=== PATIENT | male | born 1965 | race Caucasian/White ===

== ENCOUNTER 2017-04-26 07:03 | Day surgery (SDC) | payer OTHER ==
--- NOTE | 2017-04-11 13:04 | HP ---
HISTORY OF PHYSICAL: DATE OF SURGERY/ADMISSION: 04/26/2017 - [facility] ATTENDING SURGEON: Dr. Kerr. (DICTATED BY JUJU JOHNSON) PROCEDURE: Left wrist de Quervain's release. DATE OF OFFICE VISIT: 04/11/2017. CHIEF COMPLAINT: Left wrist pain. HISTORY OF PRESENT ILLNESS: The patient is a pleasant 52-year-old male who has recent diagnosis of de Quervain's of the left wrist. He has tried conservative measures such as physical therapy and since then, however, has not had decrease in his pain and has elected to undergo a left wrist de Quervain's release on by Dr. Kerr. PAST MEDICAL HISTORY: 1. GERD. 2. Depression. 3. Anxiety. PAST SURGICAL HISTORY: Bilateral knee surgery by Dr. Dias. MEDICATIONS: 1. Klonopin 0.5 mg p.r.n. b.i.d. 2. Celexa 20 mg p.o. daily. 3. Omeprazole 20 mg daily. ALLERGIES: No known allergies. FAMILY MEDICAL HISTORY: Mother from lung cancer. Father alive and well. SOCIAL HISTORY: No tobacco use. Positive alcohol use, approximately one drink per week. Currently living with his . REVIEW OF SYSTEMS: General: Negative for fevers, chills, or night sweats. No difficulty with anesthesia. HEENT: Negative for headache, lightheadedness, or syncopal episodes. Integument: Negative for open wounds, difficulty with healing of lesions. Cardiothoracic: Negative for hypertension, chest pain, palpitation, or edema. Pulmonary: Negative for shortness of breath, chronic cough, or COPD. GI: Negative for nausea, vomiting, constipation, or diarrhea. Positive for GERD. : Negative for nocturia, urinary frequency, or urgency. No history of UTIs or kidney problems. Musculoskeletal: Negative for chronic pain. Neuro: Positive for paresthesias and numbness in the left thumb extending into wrist/forearm. No history of fever, chills, or epilepsy. Positive for anxiety, positive for depression. Endocrine: Negative for diabetes, negative for thyroid disease. Hematologic: Negative for easy bruising. No history of DVT. Infectious Disease: Negative for MRSA, hepatitis C or HIV. PHYSICAL EXAMINATION VITAL SIGNS: Height 67 inches, weight 165 pounds. Pulse 80, blood pressure 113 /78, respirations 16, temperature 97.3, and BMI 24.3. HEENT: Normocephalic, atraumatic. EOMI. NECK: Supple. Trachea midline. PULMONARY: Lungs clear to auscultation bilaterally. No crackles, rhonchi, or wheezes. CARDIOVASCULAR: Regular rate and rhythm. No murmurs, gallops, or rubs. ABDOMEN: Soft, nontender, and nondistended. Negative for CVA tenderness bilaterally. NEUROLOGIC: Alert and oriented x3. Cranial nerves grossly intact. Sensation intact to light touch in bilateral upper extremities. MUSCULOSKELETAL: Negative Elisha's. Pulse is 2+ bilaterally. Full range of motion of the wrist, left side, and left thumb with decreased strength of approximately 3/5 with extension, abduction, and adduction. Cap refill is less than 2 in all left digits. Full range of motion and strength in digits 3 through 5 without any pain. IMPRESSION: Left wrist de Quervain's. PLAN: The patient is scheduled to undergo de Quervain's release on 04/26/[address] Kerr. He will be followed 10 days postoperatively for suture removal and and wound check. Prescription for Tylenol No. 3 and Colace was sent to the patient's pharmacy for postoperative management. JUJU JOHNSON [id number]/[facility] #: [id number] MTDD
[~2017-04-26 07:03] MED LIST: Buffered Lidocaine 0.9% SYRIN* 5 ML/SYR SYRINGE INTRADERM ONE
[2017-04-26] MEDS ORDERED: Propofol* 10 MG/ML 20 ML BTL IV PUSH ONE (07:56)
[2017-04-26] MEDS ORDERED: Lidocaine 2% PF * 5 ML VIAL ONE (07:56)
[2017-04-26] MEDS ORDERED: fentaNYL* 50 MCG/ML 2 ML VIAL (100 MCG VIAL) ONE (07:56)
[2017-04-26] MEDS ORDERED: Midazolam* 1 MG/ML 2 ML VIAL (2 MG) ONE (08:09)
[2017-04-26] MEDS ORDERED: Lidocaine 1% INJ* 10 MG/ML 30 ML SDV ONE (08:14)
[2017-04-26 09:41] VITALS: BP 117/87
--- NOTE | 2017-04-27 06:23 | OP ---
DATE OF OPERATION: 04/26/17 [facility] DATE OF : 67 SURGEON: Kitty Kerr MD SUPERVISOR SILVERING DEPARTMENT: JUJU Church ANESTHESIA: Local MAC. PRE-OP DIAGNOSIS: Left de Quervain's tenosynovitis. POST-OP DIAGNOSIS: Left de Quervain's tenosynovitis. OPERATIVE PROCEDURE: Left de Quervain's release. ESTIMATED BLOOD LOSS: Zero. TOURNIQUET TIME: About 8 minutes. INDICATIONS FOR PROCEDURE: Neftaly is a 52-year-old male who has pain in the radial aspect of his left wrist. He has failed conservative treatment. He has Quervain's tenosynovitis. He presents for first dorsal compartment release on the left. DESCRIPTION OF PROCEDURE: The patient was brought to the operating room and given a sedation anesthetic and a local infiltration of 10 cc of 1% plain lidocaine in the radial aspect of the left wrist. The skin of his left hand and forearm was prepped and draped in the usual sterile fashion. The hand and forearm were exsanguinated and the tourniquet elevated to 250 mmHg. A longitudinal incision was made centered at the tip of the radial styloid. We dissected bluntly through the subcutaneous tissue. Branches of the radial sensory nerve were located and retracted by the surgical services coordinator, Patsy Parmar. The first dorsal compartment was incised, completely releasing the APL and EPB tendons, which were in separate compartments. There was some surrounding tenosynovitis and this was debrided. The wound was irrigated and the skin edges were reapproximated with 4-0 nylon suture. The wound was dressed with Xeroform, 4x4, Webril, and an Otis wrap. The patient tolerated the procedure well and was brought to the recovery room in good condition. [id number]/[facility] #: [id number] MTDD
== END 2017-04-26 09:37 | disposition home or self-care (01) ==
LOC: OREAST 07:03
PROVIDERS: ATTEND Orthopaedic Surgery
DX: M65.4 Radial styloid tenosynovitis [de Quervain] (principal)
CPT/HCPCS: J2001; J2250; J2704; J3010

== ENCOUNTER 2018-06-20 08:01 | Day surgery (SDC) | payer OTHER ==
--- NOTE | 2018-06-16 21:42 | HP ---
Amended report to enter cosigning physician. PREOPERATIVE HISTORY AND PHYSICAL: DATE OF ADMISSION: 06/20/18 DATE OF OFFICE VISIT/ENCOUNTER: 06/04/18 ATTENDING SURGEON: Kitty Kerr MD* (dictated by JUJU Church). PROCEDURE: Right elbow lateral release. CHIEF COMPLAINT: Right elbow pain. HISTORY OF PRESENT ILLNESS: This is a 53-year-old male who has had pain in his right elbow since June 2017. He denies any trauma. He was diagnosed with lateral epicondylitis. 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 The pain is chronic and it aches. He even has pain at rest. He has failed conservative treatment including nonsteroidal anti- inflammatory drugs, 2 cortisone injections, bracing and physical therapy. He is interested in a more permanent solution for this problem and has consented to proceed with surgical intervention. PAST MEDICAL HISTORY: 1. GERD. 2. Anxiety. PAST SURGICAL HISTORY: 1. Lipoma excision from groin in 2001. 2. Bilateral knee surgeries to address problems with medial collateral ligament. 3. Risk surgery in 2016. CURRENT MEDICATIONS: 1. Celexa 20 mg daily. 2. Klonopin 0.5 mg twice a day. 3. [place]-3. 4. Omeprazole 20 mg. 5. Daily vitamins. ALLERGIES: No known drug allergies. FAMILY MEDICAL HISTORY: Cancer and heart disease. SOCIAL HISTORY: The patient is employed as a beer distributor. He denies tobacco use and recreational drug use. He does drink alcohol on occasion. REVIEW OF SYSTEMS: General: Negative for fevers, chills, night sweats, unexplained weight loss/gain. No known anesthesia problems in the past. HEENT : Negative for headache, lightheadedness, syncopal episodes, or visual changes. Integumentary: Negative for abrasions, lesions, or open wounds. Cardiothoracic : Negative for hypertension, chest pain, palpitations, or edema. Respiratory: Negative for shortness of breath with exertion, chronic cough, or wheezing. GI : Negative for nausea, vomiting, diarrhea, constipation, or GERD. : Negative for nocturia, urinary frequency/urgency, history of UTIs, or kidney problems. Musculoskeletal: Positive for current complaint. Negative for chronic or intermittent back pain or history of fractures. Neurological: Negative for paresthesias, numbness, history of seizure, stroke, poor balance. Positive for anxiety. Endocrine: Negative for diabetes and thyroid issues. Hematologic: Negative for easy bruising, anemia, bleeding disorders, history of DVT. Infectious Disease: Negative for history of MRSA, hepatitis C, or HIV. PHYSICAL EXAMINATION GENERAL: Well-developed, well-nourished 53-year-old male in no acute distress. VITAL SIGNS: Height 5 feet 7 inches, weight 162, pulse rate 87, blood pressure 122/80. HEENT: Normocephalic, atraumatic. Pupils are equal, round, and reactive to light and accommodation. Extraocular movements are intact. Throat is clear. NECK: Supple. No palpable lymph nodes. PULMONARY: Lungs are clear to auscultation bilaterally. No wheezes, rales, or rhonchi. CARDIOVASCULAR: Regular rate and rhythm. S1, S2. No murmurs, rubs, or gallops. No edema. ABDOMEN: Positive bowel sounds. Soft, nontender. MUSCULOSKELETAL: On exam of his right elbow, there is no visible swelling. The patient has exquisite tenderness to palpation in the area of the lateral epicondyle. He has increased pain with the extremes of both elbow flexion and extension and increased pain with wrist extension and forearm supination. He also has pain with elbow extension and squeezing his hand. Neurovascular function is intact. No laxity noted at the elbow. NEUROLOGIC: Alert and oriented x3. Cranial nerves II through XII are intact. Sensation is intact to light touch. IMPRESSION: Right elbow lateral epicondylitis. PLAN: The patient is scheduled to undergo a right elbow lateral release with Dr. Kerr on 06/20/18. He will return to the office 10 days postop for followup and suture removal. A prescription for [place] was e-scribed to the patient's pharmacy for postoperative pain management. JUJU CHURCH [id number]/[facility] #: [id number] MTDD
[~2018-06-20 08:01] MED LIST changes: +Dexamethasone TAB* 4 MG ONE; +Dexamethasone TAB* 4 MG PO ONE; +DiMENhydriNATE IV* 50 MG/ML VIAL IV PUSH PRN; +Famotidine IV* 10 MG/ML 2 ML (20 mg) IV ONE; +Famotidine IV* 10 MG/ML 2 ML (20 mg) ONE; +Morphine INJ* 2 MG/ML 1 ML SYRINGE (TWO MG - NEW SYRINGE VERSION) IV PRN; +Naloxone* 0.4 MG/ML 1 ML VIAL IV PRN; +Ondansetron ODT TAB* 4 MG ONE; +Ondansetron TAB* 4 MG PO ONE; +PROCHLORPERAZINE INJ 5 MG/ML 2 ML VIAL IV PRN; +fentaNYL* 50 MCG/ML 2 ML VIAL (100 MCG VIAL) IV PRN; +oxyCODONE/Acetamin 5/325 MG* TAB PO PRN
[2018-06-20] MEDS ORDERED: fentaNYL* 50 MCG/ML 2 ML VIAL (100 MCG VIAL) ONE (09:06)
[2018-06-20] MEDS ORDERED: Midazolam* 1 MG/ML 5 ML VIAL (5 MG) ONE (09:06)
[2018-06-20] MEDS ORDERED: KETAMINE HCL* 50 MG/ML 10 ML VIAL ONE (09:06)
[2018-06-20] MEDS ORDERED: Bupivacaine 0.5%* 50 ML VIAL ONE (09:30)
[2018-06-20] MEDS ORDERED: Propofol* 10 MG/ML 20 ML BTL IV PUSH ONE (09:35)
[2018-06-20] MEDS ORDERED: Lidocaine 2% PF * 5 ML VIAL ONE (10:21)
[2018-06-20] MEDS ORDERED: Ketorolac INJ* 30 MG/ML 1 ML VIAL ONE (10:21)
[2018-06-20 11:17] VITALS: BP 128/88
--- NOTE | 2018-06-20 20:49 | OP ---
DATE OF OPERATION: 06/20/18 [facility] DATE OF : 67 SURGEON: Kitty Kerr MD FOUNDRY METALLURGIST: JUJU Church ANESTHESIA: Local MAC. PRE-OP DIAGNOSIS: Right lateral epicondylitis. POST-OP DIAGNOSIS: Right lateral epicondylitis. OPERATIVE PROCEDURE: Right elbow lateral release. ESTIMATED BLOOD LOSS: Zero. TOURNIQUET TIME: About 30 minutes. INDICATIONS: Ryder is a 53-year-old male who has persistent right lateral epicondylitis. He has failed to improve with conservative measures, it is a work related injury. He presents for right elbow lateral release. DESCRIPTION OF PROCEDURE: The patient was brought to the operating room, was given a sedation anesthetic and a local infiltration with a total of 20 cc of Marcaine 0.5% plain. A longitudinal incision was made centered at the lateral epicondyle. We dissected sharply down to the extensor origin. A distally based U-shaped flap was created at the extensor origin, it was subperiosteally dissected off of the lateral epicondyle. The underlying degenerated tissue was debrided and sent for pathology. The wound was copiously irrigated with saline. The lateral epicondyle was debrided with a rongeur and then the extensor origin was repaired in shortened fashion with #1 Vicryl suture. The subcutaneous tissue was closed with 3-0 Vicryl and the skin with skin daren. The wound was dressed with Xeroform, 4x4, Webril and an Otis wrap. The patient tolerated the procedure well and was brought to the recovery room in good condition. [id number]/[facility] #: [id number] [facility]
== END 2018-06-20 11:08 | disposition home or self-care (01) ==
LOC: OREAST 08:01
PROVIDERS: ATTEND Orthopaedic Surgery
DX: M77.11 Lateral epicondylitis, right elbow (principal); K21.9 Gastro-esophageal reflux disease without esophagitis; F41.9 Anxiety disorder, unspecified
CPT/HCPCS: A9270-GY; J1885; J2250; J2704; J3010; J8540